=== PATIENT | male | born 1955 | race African-American/Black ===

== ENCOUNTER 2023-04-23 01:01 | Day surgery (SDC) | payer MEDICARE, SELFPAY ==
[2023-04-10 13:36] VITALS: BMI 27.8
[2023-04-23 06:17] VITALS: BP 116/73; PULSE 87; RESP 17; TEMP 36.4; O2SAT 97; BMI 27.3
[2023-04-23] MEDS: LACTATED RINGERS 1,000 ML 150 ML IV CONT (06:31)
--- NOTE | 2023-04-23 07:14 | P.PNAN_ITS ---
Anes - Initial Pre Proc Eval Procedure: Operation Date: 04/23/23 07:30 Proposed Procedures p Colonoscopy - Doron Vaughan MD Date/Time: 04/23/23 07:14 Surgeon: Doron Vaughan MD Pre Op Diagnosis: hx colon polyps Patient Data Age: 67 Gender: M Height: 1.83 m Weight: 91.4 kg Last Vital Signs Temp 97.6 F 04/23/23 06:17 Pulse 87 04/23/23 06:17 Resp 17 04/23/23 06:17 BP 116/73 04/23/23 06:17 Pulse Ox 97 04/23/23 06:17 O2 Del Method Room Air 04/23/23 06:17 Allergies Allergy/AdvReac Type Severity Reaction Status Date / Time No Known Allergies Allergy Verified 04/23/23 06:16 Home Medications Medication Instructions Recorded Confirmed Type losartan 50 mg tablet 50 mg PO DAILY 04/10/23 04/23/23 History xpvjqgzgekre-bmdthjgf-efyzjt 1 tablet PO DAILY 04/10/23 04/23/23 History tablet (Multivitamin 50 Plus tablet) rosuvastatin 20 mg tablet 50 mg PO DAILY 04/10/23 04/23/23 History thiamine HCl (vitamin B1) 50 mg 100 mg PO DAILY 04/10/23 04/23/23 History tablet (Vitamin B-1) Patient hx anesthesia problems: none Family hx anesthesia problems: none Results Review: All pre-operative results and documents have been reviewed as part of the pre- operative evaluation. PMFSH Social History Social History Smoking packs per day: 1 Smoking cigarettes per day: 20.0 Years smoked: 30 Smoking pack-years: 30.00 Smoking status: Former smoker Tobacco type: cigarettes Alcohol intake: current Drinks per week: 5 Alcohol use details: BEER WITH FOOTBALL Substance use: never Substance use type: does not use Living arrangements: alone Spiritual care concerns: No Anes - Eval Final PreProcedure Day of Procedure 04/23/23 07:14 Patient weight: normal Heart: regular rate and rhythm Lungs: clear to auscultation Airway: Mallampati scale class II Neurological: alert and oriented Last oral intake: >/= 8 hours ASA classification: II Emergent: no Anesthetic plan: proceed Anesthesia type and monitoring: general GIVS and standard monitoring Results Review: All pre-operative results and documents have been reviewed as part of the pre- operative evaluation. Informed Consent: The patient's anesthetic plan and its attendant risks and benefits were discussed with the patient/family/POA. Questions were solicited and answers provided to the satisfaction of the patient/family/POA.
--- NOTE | 2023-04-23 07:31 | PM.HPGS ---
History of Present Illness History of Present Illness Consent: Risks, benefits, and alternatives have been discussed and questions answered. Patient agrees to proceed with procedure. Chief complaint: colon screening Narrative: Homer Little is a 67 year old male here for colonoscopy, last one 10 years ago Review of Systems Constitutional: Constitutional: Denies headache(s) and Denies weakness Eyes: Eyes: Denies blurry vision ENT: Reports Normal hearing present, Denies headache(s) and Denies neck pain Cardiovascular: Cardiovascular: Denies chest pain and Denies dyspnea Respiratory: Respiratory: Denies dyspnea Gastrointestinal: Gastrointestinal: Reports no additional gastrointestinal complaints Genitourinary: Genitourinary: Denies dysuria Musculoskeletal: Musculoskeletal: Denies neck pain Integumentary/Breasts: Skin/Breast: Denies dry skin Neurologic: Reports Normal hearing present, Denies headache(s) and Denies weakness Psychiatric: Psychiatric: Denies anxiety Endocrine: Endocrine: Denies change in body appearance Hematologic/Lymphatic: Hematologic/Lymphatic: Denies easy bleeding Allergic/Immunologic: Allergic/Immunologic: Denies urticaria PMFSH Past Medical History Medical History (Updated 04/23/23 @ 07:32 by Doron Vaughan MD) Colon cancer screening Social History Social History Smoking packs per day: 1 Smoking cigarettes per day: 20.0 Years smoked: 30 Smoking pack-years: 30.00 Smoking status: Former smoker Tobacco type: cigarettes Alcohol intake: current Drinks per week: 5 Alcohol use details: BEER WITH FOOTBALL Substance use: never Substance use type: does not use Living arrangements: alone Spiritual care concerns: No Meds Home Medications and Allergies Home Medications Medication Instructions Recorded Confirmed Type losartan 50 mg tablet 50 mg PO DAILY 04/10/23 04/23/23 History azqablafwevr-dnmkeugg-lhhvjc 1 tablet PO DAILY 04/10/23 04/23/23 History tablet (Multivitamin 50 Plus tablet) rosuvastatin 20 mg tablet 50 mg PO DAILY 04/10/23 04/23/23 History thiamine HCl (vitamin B1) 50 mg 100 mg PO DAILY 04/10/23 04/23/23 History tablet (Vitamin B-1) Allergies Allergy/AdvReac Type Severity Reaction Status Date / Time No Known Allergies Allergy Verified 04/23/23 06:16 Vital Signs Vital Signs - 24 hr 04/23/23 06:17 Temperature 97.6 F Pulse Rate 87 Respiratory Rate 17 Blood Pressure 116/73 Pulse Oximetry 97 Oxygen Delivery Room Air Exam Const: General: comfortable and no acute distress HENMT: Face/Nose/Sinus: Normal nares present Eyes: General: appearance normal, both eyes and all related structures Neck: Neck: no JVD Resp: Auscultation: clear to auscultation bilaterally Cardio: Rate: regular rate Rhythm: regular rhythm GI: Inspection: non-distended GI Palp: Yes Soft to palpation Skin: General skin exam: normal color Neuro: General: gait normal Speech: normal speech Extrem: General: normal to inspection Psych: Mental Status: mental status grossly normal Assessment and Plan Assessment and plan (1) Colon cancer screening: Code(s): Z12.11 - Encounter for screening for malignant neoplasm of colon Status: Acute Assessment and Plan: colonoscopy
[2023-04-23 07:53] VITALS: BP 87/50; PULSE 67; RESP 13; O2SAT 98
[2023-04-23 08:03] VITALS: BP 94/51; PULSE 81; RESP 18; O2SAT 100
[2023-04-23 08:08] VITALS: BP 120/56; PULSE 69; RESP 25; O2SAT 100
[2023-04-23 08:13] VITALS: BP 124/80; PULSE 66; RESP 21; O2SAT 100
== END 2023-04-23 08:26 | disposition home or self-care (01) ==
PROVIDERS: PCP Internal Medicine; Visit Provider Internal Medicine Gastroenterology
PROC: 0DJD8ZZ Inspection of Lower Intestinal Tract, Via Natural or Artificial Opening Endoscopic (ICD-10-PCS; CPT 45378; principal; 2023-04-23 07:30)
DX: Z12.11 Encounter for screening for malignant neoplasm of colon (principal); K62.1 Rectal polyp; K63.5 Polyp of colon; K64.8 Other hemorrhoids; K57.30 Diverticulosis of large intestine without perforation or abscess without bleeding; Z87.891 Personal history of nicotine dependence
CPT/HCPCS: 45385; 88305; J2704; J7120

== ENCOUNTER 2023-11-19 08:32 | Outpatient (CLI) | payer MEDICARE, SELFPAY ==
--- NOTE | ~2023-11-19 | XR_ITS ---
EXAMINATION: XR barium swallow DATE: 11/19/2023 09:24 INDICATION: Dysphagia. Heartburn. TECHNIQUE: The patient drank thick barium, gas-producing crystals, and thin barium. Fluoroscopic spot radiographs of the hypopharynx and esophagus were obtained. Fluoroscopy exposure time was 2.2 minut es. A total of 1400 fluoroscopic images were recorded. Total DAP was 13.2 Gycm^2 COMPARISON: None. FINDINGS: The pharynx is symmetric and without evidence of mass lesion or mucosal irregularity. The esophagus i s normal without mass or stricture. Esophageal motility is normal. Small sliding-type hiatal hernia w ith esophageal B ring at the gastroesophageal junction approximately 4-5 cm above level of the diaphr agm. There was a single episode of gastroesophageal reflux of a moderate amount of contrast extending to the mid esophagus with provocative maneuvers. IMPRESSION: 1. Small sliding-type hiatal hernia with one episode of gastroesophageal reflux with provocative amilcar uvers. Reviewed, dictated and finalized at location [facility]. IMPRESSION: 1. Small sliding-type hiatal hernia with one episode of gastroesophageal reflux with provocative maneuvers.
== END 2023-11-19 08:33 | disposition home or self-care (01) ==
PROVIDERS: PCP Internal Medicine; Visit Provider Nurse Practitioner Family
DX: K21.00 Gastro-esophageal reflux disease with esophagitis, without bleeding (principal); K44.9 Diaphragmatic hernia without obstruction or gangrene
CPT/HCPCS: 74220

== ENCOUNTER 2023-12-24 09:00 | Day surgery (SDC) | payer MEDICARE, SELFPAY ==
[2023-11-21 14:27] VITALS: BMI 29.0
[2023-12-13 11:24] VITALS: BMI 28.5
--- NOTE | 2023-12-17 11:11 | PM.HPGS ---
History of Present Illness History of Present Illness Consent: Risks, benefits, and alternatives have been discussed and questions answered. Patient agrees to proceed with procedure. Chief complaint: Esophageal Stricture, Dysphagia Narrative: Homer Little is a 68 year old male Referred for evaluation of intermittent dysphagia for approximately one year. Reports dysphagia to large pills only-MVI pill. reports sensation in the upper neck area. the pill past with large amounts of water. He is able to continue to eat and drink during this time. His multi-vitamin was discontinued this past June and has not had any complaints of dysphagia since. Review of Systems Review of Systems: All systems reviewed & are unremarkable except as noted in HPI and below PMFSH Past Medical History Medical History Colon cancer screening HTN (hypertension) Hyperlipidemia Overweight Social History Social History Smoking packs per day: 1 Smoking cigarettes per day: 20.0 Years smoked: 30 Smoking pack-years: 30.00 Smoking status: Former smoker Tobacco type: cigarettes Alcohol intake: current Drinks per week: 5 Alcohol use details: BEER WITH FOOTBALL Substance use: never Substance use type: does not use Living arrangements: alone Spiritual care concerns: No Meds Home Medications and Allergies Home Medications Medication Instructions Recorded Confirmed Type cholecalciferol (vitamin D3) 1,250 1,250 mcg PO WEEKLY 12/13/23 12/24/23 History mcg (50,000 unit) capsule ezetimibe 10 mg tablet 10 mg PO DAILY 12/13/23 12/24/23 History losartan 25 mg tablet 25 mg PO DAILY 12/13/23 12/24/23 History rosuvastatin 40 mg tablet 40 mg PO DAILY 12/13/23 12/24/23 History Allergies Allergy/AdvReac Type Severity Reaction Status Date / Time No Known Allergies Allergy Verified 12/24/23 09:47 Exam Const: General: alert Orientation/consciousness: patient oriented x3 Resp: Auscultation: clear to auscultation bilaterally Cardio: Rhythm: regular rhythm GI: GI Palp: Yes Soft to palpation and No Tenderness to palpation present (GI) Neuro: General: patient oriented x3 Assessment and Plan Assessment and plan (1) Dysphagia: Code(s): R13.10 - Dysphagia, unspecified Status: Acute Assessment and Plan: EGD with possible biopsy or dilatation or cautery.
[2023-12-24 09:53] VITALS: BMI 27.8
[2023-12-24 09:54] VITALS: BP 133/84; PULSE 60; RESP 18; TEMP 36.3; O2SAT 100
--- NOTE | 2023-12-24 10:04 | SUR.PREOP ---
PT NOW HAS A RIDE HOME WITH HIS FRIEND SARAH. I SPOKE WITH SARAH, HE WILL DRIVE PT HOME. DR GONZALES AWARE.
--- NOTE | 2023-12-24 10:05 | P.PNAN_ITS ---
Anes - Initial Pre Proc Eval Procedure: Operation Date: 12/24/23 10:30 Proposed Procedures p Esophagogastroduodenoscopy - Kai Oliva MD Date/Time: 12/24/23 10:05 Surgeon: Kai Oliva MD Pre Op Diagnosis: Esophageal Stricture, Dysphagia Patient Data Age: 68 Gender: M Height: 1.83 m Weight: 93.3 kg Last Vital Signs Temp 36.3 C L 12/24/23 09:54 Pulse 60 12/24/23 09:54 Resp 18 12/24/23 09:54 BP 133/84 12/24/23 09:54 Pulse Ox 100 12/24/23 09:54 O2 Del Method Room Air 12/24/23 09:54 Allergies Allergy/AdvReac Type Severity Reaction Status Date / Time No Known Allergies Allergy Verified 12/24/23 09:47 Home Medications Medication Instructions Recorded Confirmed Type cholecalciferol (vitamin D3) 1,250 1,250 mcg PO WEEKLY 12/13/23 12/24/23 History mcg (50,000 unit) capsule ezetimibe 10 mg tablet 10 mg PO DAILY 12/13/23 12/24/23 History losartan 25 mg tablet 25 mg PO DAILY 12/13/23 12/24/23 History rosuvastatin 40 mg tablet 40 mg PO DAILY 12/13/23 12/24/23 History Patient hx anesthesia problems: none Family hx anesthesia problems: none Results Review: All pre-operative results and documents have been reviewed as part of the pre- operative evaluation. FOR[facility]LY [facility], [facility] Past Medical History Medical History (Updated 12/24/23 @ 10:05 by Jose Bolanos MD) Colon cancer screening HTN (hypertension) Hyperlipidemia Overweight Social History Social History Smoking packs per day: 1 Smoking cigarettes per day: 20.0 Years smoked: 30 Smoking pack-years: 30.00 Smoking status: Former smoker Tobacco type: cigarettes Alcohol intake: current Drinks per week: 5 Alcohol use details: BEER WITH FOOTBALL Substance use: never Substance use type: does not use Living arrangements: alone Spiritual care concerns: No Anes - Eval Final PreProcedure Day of Procedure 12/24/23 10:05 Patient weight: overweight Heart: regular rate and rhythm Lungs: clear to auscultation Airway: Mallampati scale class II Neurological: alert and oriented Last oral intake: >/= 8 hours ASA classification: III Emergent: no Anesthetic plan: proceed Anesthesia type and monitoring: general GIVS and standard monitoring Results Review: All pre-operative results and documents have been reviewed as part of the pre- operative evaluation. Informed Consent: The patient's anesthetic plan and its attendant risks and benefits were discussed with the patient/family/POA. Questions were solicited and answers provided to the satisfaction of the patient/family/POA.
[2023-12-24] MEDS: LACTATED RINGERS 1,000 ML 150 ML IV CONT (10:11)
[2023-12-24 10:50] VITALS: BP 99/54; PULSE 64; RESP 15; O2SAT 100
[2023-12-24 11:00] VITALS: BP 90/80; PULSE 63; RESP 16; O2SAT 100
--- NOTE | 2023-12-24 11:09 | WPDANESPN ---
Anes - Prog Note Post-Op Date/Time: 12/24/23 11:09 Cardiovascular status: normal Respiratory status: normal Airway patency: baseline Mental status: baseline Post-Op hydration status: normal Vital Signs: Last Vital Signs Temp 36.3 C L 12/24/23 09:54 Pulse 63 12/24/23 11:00 Resp 16 12/24/23 11:00 BP 90/80 L 12/24/23 11:00 Pulse Ox 100 12/24/23 11:00 O2 Del Method Room Air 12/24/23 11:00 Pain Score (VAS): 0/10 I/O: Intake & Output 12/23/23 12/24/23 12/24/23 23:59 07:59 15:59 Intake Total 150 Balance 150 Patient Feedback: Patient satisfied with anesthetic care.
[2023-12-24 11:10] VITALS: BP 112/79; PULSE 52; RESP 18; O2SAT 100
== END 2023-12-24 11:22 | disposition home or self-care (01) ==
PROVIDERS: PCP Internal Medicine; Visit Provider Internal Medicine Gastroenterology
PROC: 0DJ08ZZ Inspection of Upper Intestinal Tract, Via Natural or Artificial Opening Endoscopic (ICD-10-PCS; CPT 43235; principal; 2023-12-24 10:30)
DX: R13.19 Other dysphagia (principal); K22.2 Esophageal obstruction; K21.00 Gastro-esophageal reflux disease with esophagitis, without bleeding
CPT/HCPCS: 43249; 43239

== ENCOUNTER 2023-12-24 10:58 | Outpatient (NON) | payer MEDICARE, SELFPAY | END 2023-12-24 10:59 | disposition home or self-care (01) | LOC: ANHLAB 12-25 11:00 | PROVIDERS: PCP Internal Medicine; Visit Provider Internal Medicine Gastroenterology | DX: R13.10 Dysphagia, unspecified (principal); K21.9 Gastro-esophageal reflux disease without esophagitis | CPT/HCPCS: 88305 ==

== ENCOUNTER 2024-04-14 12:21 | Outpatient (CLI) | payer MEDICARE, SELFPAY ==
--- NOTE | ~2024-04-14 | CT_ITS ---
CT Scan of the Chest without Contrast: Clinical Indication: Lung cancer screening, nicotine dependence Technique: Contiguous sections were acquired throughout the chest without intravenous contrast. Dose reduction technique was used on this scan by utilizing automated exposure control and iterative recon struction technique. The dose-length product (DLP) was 125.59 mGy-cm. Findings: There is no evidence of any significant mediastinal, hilar or axillary lymphadenopathy. Extensive cor onary artery calcifications are present. There is no evidence of pleural or pericardial effusion. There is a 7 mm irregular nodule/density in the peripheral right upper lobe (axial image 57). There i s a 3 mm nodule adjacent to the left fissure (axial image 70). Probable mild emphysema. Images through the upper abdomen reveal no abnormalities. Impression: Lung RADS 3: Probably benign. Six-month follow-up CT advised. Reviewed, dictated and finalized at [facility]. Impression: Lung RADS 3: Probably benign. Six-month follow-up CT advised.
== END 2024-04-14 12:22 | disposition home or self-care (01) ==
LOC: ANHIMG 12:23
PROVIDERS: PCP Internal Medicine; Visit Provider Internal Medicine
DX: Z12.2 Encounter for screening for malignant neoplasm of respiratory organs (principal); Z87.891 Personal history of nicotine dependence; R91.8 Other nonspecific abnormal finding of lung field
CPT/HCPCS: 71271

== ENCOUNTER 2024-06-09 08:16 | Outpatient (CLI) | payer MEDICARE, SELFPAY ==
--- NOTE | ~2024-06-09 | US_ITS ---
EXAMINATION: US art doppler w press LE BI DATE: 06/09/2024 09:48 INDICATION: Peripheral vascular disease TECHNIQUE: Segmental pressures and plethysmographic and Doppler waveforms of the brachial and lower e xtremity arteries were obtained. COMPARISON: None. FINDINGS: Right and left brachial artery pressures of 114 mm Hg and 103 mm Hg, respectively, are concordant (no rmal difference <= 30 mmHg). The left high thigh pressure index is 1.09 (normal > 1.2). The arteries at the right thyroid unable to be occluded. The right ankle-brachial index (ALESHIA) is 0.86 (normal >= 0.9-1). The right great toe-brachial index (T BI) is 0.52 (normal >= 0.6-0.8). The right lower extremity segmental pressure gradients are normal (n ormal gradients <= 20-30 mmHg between adjacent levels on the same leg or the same levels on the two l egs). Arterial waveforms demonstrate brisk systolic upstrokes throughout the arteries of the right lo wer limb. The left ALESHIA is 0.82. The left TBI is 0.42. The left lower extremity segmental pressure gradients are increased between the high left thigh at the left above the knee popliteal artery. There is also a m ildly increased gradient between the left posterior tibial artery and both the left dorsalis pedis ar diana and the contralateral right dorsalis pedis and posterior tibial arteries. Arterial waveforms dem onstrate brisk systolic upstrokes throughout the arteries of the left lower limb. IMPRESSION: 1. Arterial occlusive disease to the bilateral lower limbs with mildly decreased bilateral ABIs, mild ly decreased right TBI and mild to moderately decreased left TBI. Reviewed, dictated and finalized at location [facility]. ICATION SYSTEMS ADMINISTRATOR IMPRESSION: 1. Arterial occlusive disease to the bilateral lower limbs with mildly decrease d bilateral ABIs, mildly decreased right TBI and mild to moderately decreased l eft TBI.
== END 2024-06-09 08:17 | disposition home or self-care (01) ==
PROVIDERS: PCP Internal Medicine; Visit Provider Internal Medicine
DX: I73.9 Peripheral vascular disease, unspecified (principal)
CPT/HCPCS: 93923

== ENCOUNTER 2024-11-02 07:58 | Outpatient (CLI) | payer MEDICARE, SELFPAY ==
--- NOTE | ~2024-11-02 | CT_ITS ---
CT Scan of the Chest without Contrast: Clinical Indication: Lung nodule, nicotine dependence Technique: Contiguous sections were acquired throughout the chest without intravenous contrast. Dose reduction technique was used on this scan by utilizing automated exposure control and iterative recon struction technique. The dose-length product (DLP) was 108.58 mGy-cm. COMPARISON: 04/14/2024 Findings: There is no evidence of any significant mediastinal, hilar or axillary lymphadenopathy. Severe luciano ry artery calcification present. There is no evidence of pleural or pericardial effusion. There is mild emphysema. Stable focal probable scarring at the peripheral right upper lobe (axial marika ge 44). Stable additional scarring at the right middle lobe. Stable subcentimeter nodules in the left lower lobe (axial images 60, 59). Images through the upper abdomen reveal no abnormalities. Impression: Stable benign-appearing pulmonary findings, as above. Mild emphysema. Reviewed, dictated and finalized at [facility]. Impression: Stable benign-appearing pulmonary findings, as above. Mild emphysema.
--- OUTSIDE RECORDS SUMMARY | 2024-11-02 08:22 | XMS_ITS | Clinical Summary ---
Author Organization [facility] Address [address] [place] [address] Care Team Providers [employer] Name Role Phone Heather Bynum MD Primary Care Provider [phone] Allergies No known active allergies Medications rosuvastatin (CRESTOR) 40 MG tabletIndications: PVD (peripheral vascular disease),Mixed hyperlipidemia Take 1 tablet (40 mg total) by mouth daily. 90 tablet 1 5 Active losartan (COZAAR) 25 MG tabletIndications: Primary hypertension Take 1 tablet (25 mg total) by mouth daily. 90 tablet 1 5 Active ezetimibe (ZETIA) 10 MG tabletIndications: PVD (peripheral vascular disease),Mixed hyperlipidemia Take 1 tablet (10 mg total) by mouth daily. 90 tablet 1 5 Active pantoprazole EC (PROTONIX) 40 MG tabletIndications: Gastroesophageal reflux disease without esophagitis Take 1 tablet (40 mg total) by mouth daily. 90 tablet 1 5 Active vitamin D3 (CHOLECALCIFEROL) 1.25 mg capsuleIndications :Vitamin D deficiency Take 1 capsule (1.25 mg total) by mouth once a week. 12 capsule 3 5 Active vitamin D3 (CHOLECALCIFEROL) 1.25 mg capsule Take 1 capsule (1.25 mg total) by mouth once a week. 10/21/19 25 Discontin ued(Reord er) ezetimibe (ZETIA) 10 MG tablet Take 1 tablet (10 mg total) by mouth daily. 4 10/21/19 25 Discontin ued(Reord er) losartan (COZAAR) 25 MG tablet Take 1 tablet (25 mg total) by mouth daily. 10/21/19 25 Discontin ued(Reord er) pantoprazole EC (PROTONIX) 40 MG tablet Take 1 tablet (40 mg total) by mouth. 4 10/21/19 25 Discontin ued(Reord er) rosuvastatin (CRESTOR) 40 MG tablet Take 1 tablet (40 mg total) by mouth daily. 4 10/21/19 25 Discontin ued(Reord er) Active Problems Problem Noted Date Diagnosed Date Gastroesophageal reflux disease without esophagi tis 10/20/2024 Mixed hyperlipidemia 10/20/2024 Primary hypertension 10/20/2024 PVD (peripheral vascular disease) 10/20/2024 Vitamin D deficiency 10/20/2024 Lung nodule, solitary 10/20/2024 Cigarette nicotine dependenc e with nicotine-induced disorder 10/20/2024 Hiatal hernia 10/20/2024 Gastroesophageal reflux dise ase with esophagitis without hemorrhage 10/20/2024 Encounters Date Type Department Care Team Description 10/20/2024 2:20 PM CDT [facility] [address] [address] [address] [place] [address] Heather Bynum MD New Patient (Has been fasting ); Physical; Follow Up (Chronic medical issues) 10/20/2024 Travel 10/14/2024 [facility] [place] [address] [address] [facility] [address] [place] [address] Heather Bynum MD Pre-visit [facility] 10/09/2024 Scan [facility] INFO SRVCS Scanned, [facility] from Last 3 Months Immunizations Immunization Administration Dates Next Due Shingrix 03/07/2023,12/06/2022 Family History Medical History Relation Comments Asthma Brother Asthma Father Asthma Maternal Grandfather Asthma Maternal Grandmother Asthma Mother Asthma Paternal Grandfather Asthma Paternal Grandmother Asthma Sister Relation Status Comments Brother Father Maternal Grandfather Maternal Grandmother Mother Paternal Grandfather Paternal Grandmother Sister Social History Tobacco Use Types Packs/Day Years Used Date Smoking Tobacco: Former Cigarettes 2 - 1968 Smokeless Tobacco: Never Tobacco Cessation:Counseling Given: Yes Alcohol Use Standard Drinks/Week Comments Yes 0 (1 standard drink = 0.6 oz pur e alcohol) AUDIT-C Answer Date Recorded Q1: How often do you have a drink containing alc ohol? Monthly or less 10/20/2024 Q2: How many drinks containi ng alcohol do you have on a typical day when you are drinking? 1 or 2 10/20/2024 Q3: How often do you have si x or more drinks on one occasion? Never 10/20/2024 PHQ-2 Answer Date Recorded Patient Health Questionnaire-2 Score 0 10/20/2024 Sex and Gender Information Value Date Recorded Sex Assigned at Male 10/20/2024 2:44 PM CDT Legal Sex Male 9:37 AM CDT Gender Identity Male 10/20/2024 2:44 PM CDT Sexual Orientation Straight 10/20/2024 2: 44 PM CDT Last Filed Vital Signs Vital Sign Reading Time Taken Comments Blood Pressure 105/56 10/20/2024 2:44 PM CDT Pulse 69 10/20/2024 2:44 PM CDT Temperature 36.4 C (97.6 F) 10/20/2024 2:44 PM CDT Respiratory Rate 18 10/20/2024 2:44 PM CDT Oxygen Saturation 97% 10/20/2024 2:44 PM CDT Inhaled Oxygen Concentration - - Weight 92.1 kg (203 lb) 10/20/2024 2:44 PM CDT Height 182.9 cm (6') 10/20/2024 2:44 PM CDT Body Mass Index 27.53 10/20/2024 2:44 PM CDT Plan of Treatment Upcoming Encounters Date Type Department Care Team (Late st Contact Info) Description 11/03/2024 10:20 AM CDT Laboratory Only [facility] - [place] [address] [address] [place] [address] Heather Bynum MD [address] [place] [id number] 04/27/2025 9:00 AM CDT Office Visit [facility] [place] [address] [facility] [address] [place] [address] Heather Bynum MD [address] [facility] [address] [place] [address] Health Maintenance Due Date Last Done Comments DTaP, Tdap and Td Vaccines (1 - Tdap) 1974 Pneumococcal Vaccine: 50+ Years (1 of 1 - PCV) 2005 AAA SCREENING 2020 Annual Medicare Wellness Visit 2020 COVID-19 Vaccine ( season) 2024 06/18/2024, 04/15/2023, 12/06/2022, Additional history exists RSV Immunization or 60+ Years (1 - 1-dose 75+ series) 2030 Colorectal Cancer Screening Colonoscopy (10 Years) 04/23/2033 04/23/2023, 09/29/2010, 08/18/2010 Hepatitis C Completed 02/21/2023 Zoster Vaccines Completed 03/07/2023, 12/06/2022 PHQ-2 (Physician [place]) Completed 10/20/2024 Meningococcal B Vaccine Aged Out No l onger eligible based on patient's age to complete this topic Meningococcal Vaccine Aged Out No emperatriz kb eligible based on patient's age to complete this topic RSV Immunizations Under 20 Months Aged Out No longer eligible based on patient's age to complete this topic Procedures Procedure Name Priority Date/Time Associated Diagnosis Comments COLLECTION VENOUS BLOOD VENIPUNCTURE Routine 10/20/2024 3:21 PM CDT Annual physical exam Establishing care with new doctor, encounter for General medical exam Drug therapy COLONOSCOPY GENERIC (SCAN ORDER) 04/23/2023 HEP C SCANNED ORDERS Routine 02/21/2023 from Last 3 Months or Most Recently Relevant to Health Maintenance Results * COLONOSCOPY GENERIC (SCAN ORDER) (04/23/2023) 04/23/2023 [facility] Scanned SCANNING Final Resu lt * HEP C SCANNED ORDERS (02/21/2023) [facility] Scanned SCANNING Final Resu lt [facility] from Last 3 Months or Most Recently Relevant to Health Maintenance Insurance [employer] Care Teams [employer] Relationship Specialty Start Date End Date Heather Bynum MD [address] [facility] [address] [place] [address] PCP - General INTERNAL MEDICINE 01/08/23
== END 2024-11-02 07:59 | disposition home or self-care (01) ==
PROVIDERS: PCP Internal Medicine; Visit Provider Internal Medicine
DX: R91.1 Solitary pulmonary nodule (principal); J43.9 Emphysema, unspecified; F17.219 Nicotine dependence, cigarettes, with unspecified nicotine-induced disorders
CPT/HCPCS: 71250